=== PATIENT | female | born 1955 | race Caucasian/White ===

== ENCOUNTER 2020-12-17 05:55 | Day surgery (SDC) | payer MEDICARE, MEDICAID ==
[2020-12-11 11:22] LABS: BASOPHILS # (AUTO) 0.1 X10'3 (0-0.2); EOSINOPHILS # (AUTO) 0.2 X10'3 (0-0.9); EOSINOPHILS % (AUTO) 3.5 % (0-6); LYMPHOCYTES # (AUTO) 2.7 X10'3 (1.1-4.8); LYMPHOCYTES % (AUTO) 44.3 % (21-51); MEAN CORPUSCULAR HEMOGLOBIN 32.3 PG (27.0-31.0); MEAN CORPUSCULAR HGB CONC 33.7 g/dL (33.0-36.5); MEAN PLATELET VOLUME 8.4 FL (7.4-10.4); MONOCYTES # (AUTO) 0.7 X10'3 (0-0.9); MONOCYTES % (AUTO) 10.7 % (2-12); NEUTROPHILS # (AUTO) 2.5 X10'3 (1.8-7.7); NEUTROPHILS % (AUTO) 40.5 % (42-75); PRE OP HEMATOCRIT 41.7 % (35.0-45.0); PRE OP HEMOGLOBIN 14.1 g/dL (12.0-16.0); PRE OP PLATELET COUNT 184 X10'3 (140-440); RED BLOOD COUNT 4.34 X10'6 (4.20-5.60); RED CELL DISTRIBUTION WIDTH 13.2 % (11.5-14.5)
[2020-12-11 11:35] LABS: PRE OP PROTIME 10.5 SECONDS (9.0-12.0)
[2020-12-11 11:37] LABS: ALBUMIN 3.7 G/DL (3.4-5.0); ALKALINE PHOSPHATASE 72 IU/L (46-116); BLOOD UREA NITROGEN 18 MG/DL (7-18); BUN/CREATININE RATIO 18.2 (6.6-38.0); CHLORIDE 107 MMOL/L (99-107); CREATININE 0.99 MG/DL (0.40-0.90); PRE OP ALT 27 U/L (30-65); PRE OP ANION GAP 5 (8-16); PRE OP AST 22 U/L (10-37); PRE OP BILIRUB, TOTAL 0.4 MG/DL (0.0-1.0); PRE OP GLUCOSE 69 MG/DL (70-104); PRE OP POTASSIUM 4.2 MMOL/L (3.4-5.1); PRE OP SODIUM 143 MMOL/L (135-145); TOTAL CARBON DIOXIDE 31.2 MMOL/L (24-32); TOTAL PROTEIN 7.4 G/DL (6.4-8.2); eGFR 56 ML/MIN
[~2020-12-17] VITALS: Ht 157.5 cm; Wt 59.0 kg
[2020-12-17] VITALS (10 sets, daily range): BP systolic 97–139; BP diastolic 52–92
[~2020-12-17 05:55] MED LIST: AZEL30SP3 BOTHNARES; MOME17SP NS; MONT10TA97 PO; TRAZ150T78 PO; albuterol 2.5 MG/3 ML nebule NEB ONE; famotidine 20mg tablet PO ONE; ringers solution, lacted 1,000 ML IV SCH
[2020-12-17] MEDS ORDERED: LIDOcaine 1% (10mg/ml) 2ml vial ONE (06:12)
[2020-12-17] MEDS ORDERED: LIDOcaine 1% W/epiNEPHrine 1:100,000 20ml vial ONE (06:48)
[2020-12-17] MEDS ORDERED: cocaine 4% topical solution 4ml bottle ONE (06:48)
[2020-12-17] MEDS ORDERED: phenylephrine 1% (X-tra strg) 15ml nasal spray NS ONE (06:49)
[2020-12-17] MEDS ORDERED: bacitracin 15gm ointment TP ONE (06:49)
[2020-12-17] MEDS ORDERED: cefTAZidime 1gm inj ONE (06:50)
[2020-12-17] MEDS ORDERED: triamcinolone acetonide 40mg/ml inj ONE (06:50)
[2020-12-17] MEDS: oxymetazoline 15 ML nasal spray NS PRN ×2 (07:19→08:48)
[2020-12-17] MEDS ORDERED: mupirocin 2% ointment 22GM ONE (07:36)
[2020-12-17] MEDS ORDERED: midazolam 2 mg/2 ml injection ONE (07:48)
[2020-12-17] MEDS ORDERED: fentaNYL/PF 50MCG/1 ML 2ML syringe ONE ×2 (07:48→08:51)
[2020-12-17] MEDS ORDERED: LIDOcaine 2% (20mg/ml) 5ml vial ONE (07:50)
[2020-12-17] MEDS ORDERED: propofol inj 20 ML IV ONE (07:50)
[2020-12-17] MEDS ORDERED: ondansetron/PF 4mg/2ml inj ONE (08:29)
[2020-12-17] MEDS ORDERED: ePHEDrine 50MG/ML INJ. ONE (08:29)
--- NOTE | 2020-12-17 09:15 | NUR ---
Received from OR via [facility] , accompanied by Anesthesiologist DR SALAZAR and report given by Anesthesiolgist. PATIENT DROWSY, DENIES PAIN, V/S WNL 100% O2, CSM INTACT, 20G PIV TO LFA, COTTONOID PACKING TO SINUSES BILATERALLY WITH NO ACTIVE DRAINAGE VISIBLE AT THIS TIME
[2020-12-17] MEDS ORDERED: salt irrigation nasal spray 45 ML SPRAY NS PRN (09:30)
[2020-12-17] MEDS ORDERED: proCHLORperazine 10 MG/2 ml inj IV PRN (10:35)
[2020-12-17] MEDS ORDERED: meperidine/PF 25mg/ml syringe IV PRN ×3 (10:35)
[2020-12-17] MEDS ORDERED: morphine 4 MG/ML inj SYRINge IV PRN (10:35)
[2020-12-17] MEDS ORDERED: morphine 2 MG/ML inj. syringe IV PRN (10:35)
[2020-12-17] MEDS ORDERED: ringers solution, lacted 1,000 ML IV SCH (10:35)
[2020-12-17] MEDS ORDERED: ondansetron/PF 4mg/2ml inj IV PRN (10:35)
--- NOTE | 2020-12-17 11:05 | NUR ---
PTS VS-WNL, ABLE TO STAND AND GET DRESSED, PAIN MINIMAL-IN HEAD/NOSE AREA, NO N/V, PIV D/CD, I HAVE REVIEWED D/C INSTRUCTIONS WITH PATIENT AND SISTER AND THEY HAVE VERBALIZED UNDERSTANDING. PATIENT D/C HOME WITH ALL BELONGINGS AND MEDICATIONS AND SUPPLIES FOR NASAL IRRIGATION ORDERED AND FAMILY GAVE TRANSPORT HOME. REMINDED TO REVIEW D/C INSTRUCTIONS AT HOME AGAIN AND CALL DR IF ANY QUESTIONS/CONCERNS.
== END 2020-12-17 11:05 | disposition home or self-care (01) ==
LOC: PAS 05:55
PROVIDERS: ATTEND Otolaryngology
DX: J34.2 Deviated nasal septum (principal); J34.3 Hypertrophy of nasal turbinates; J32.8 Other chronic sinusitis; J45.909 Unspecified asthma, uncomplicated; G47.00 Insomnia, unspecified; Z20.822 Contact with and (suspected) exposure to COVID-19; F17.210 Nicotine dependence, cigarettes, uncomplicated; Z79.899 Other long term (current) drug therapy; Z79.01 Long term (current) use of anticoagulants; Z98.890 Other specified postprocedural states; Z88.8 Allergy status to other drugs, medicaments and biological substances
CPT/HCPCS: 30140; 30520; 31240; 31254; 31256; 36415; 61782; 80053; 82948; 85025; 85576; 85610; 85730; 87426; 87635; 93005; 94640; A6402; C9250; J0713; J2001; J2250; J2405; J2704; J3010; J3301; J7040; J7120; A4618; A7000

== ENCOUNTER 2023-05-27 17:07 | Emergency (ER) | payer BC, MEDICAID ==
[~2023-05-27] VITALS: Ht 157.5 cm; Wt 55.0 kg
[~2023-05-27 17:07] MED LIST changes: -MOME17SP NS; +MOME17SP5 NS; +MONT-40 PO; -MONT10TA97 PO; -albuterol 2.5 MG/3 ML nebule NEB ONE; -famotidine 20mg tablet PO ONE; -ringers solution, lacted 1,000 ML IV SCH
[2023-05-27 17:32] VITALS: BP 99/51; PULSE 76; RESP 16; TEMP 98.4; O2SAT 99
[2023-05-27] MEDS ORDERED: VALA100031 PO (17:32)
[2023-05-27] MEDS ORDERED: GABA300C PO (17:32)
== END 2023-05-27 17:38 | disposition home or self-care (01) ==
LOC: ER 17:07
DX: B02.9 Zoster without complications (principal); Z88.5 Allergy status to narcotic agent; Z79.899 Other long term (current) drug therapy
CPT/HCPCS: 99283